=== PATIENT | male | born 1995 | race Caucasian/White ===

== ENCOUNTER 2016-11-09 12:13 | Emergency (ER) | payer OTHER ==
[~2016-11-09] VITALS: Ht 177.8 cm; Wt 60.3 kg
[2016-11-09] MEDS ORDERED: LIDOCAINE 1%, 20ML ONE (12:47)
[2016-11-09 12:59] LABS: HEMATOCRIT 39.4 % (39.2-51.8); HEMOGLOBIN 13.3 g/dL (13.7-18.0); WHITE BLOOD COUNT 6.7 x10^3/uL (4.5-13.2)
[2016-11-09] MEDS ORDERED: LIDOCAINE 1%, 20ML SQ ONE (13:00)
[2016-11-09 13:10] LABS: BLOOD UREA NITROGEN 24 mg/dL (7-18)
[2016-11-09 14:32] VITALS: BP 117/63
== END 2016-11-09 14:35 | disposition home or self-care (01) ==
LOC: ED 14:11
DX: S01.01XA Laceration without foreign body of scalp, initial encounter (principal); S11.91XA Laceration without foreign body of unspecified part of neck, initial encounter; E86.0 Dehydration; R55 Syncope and collapse; X58.XXXA Exposure to other specified factors, initial encounter; Y93.89 Activity, other specified; Y99.8 Other external cause status; Y92.89 Other specified places as the place of occurrence of the external cause
CPT/HCPCS: 12002; 36415; 80048; 82040; 82962; 85025; 93005; 99285